=== PATIENT | male | born 1970 | race Caucasian/White ===

== ENCOUNTER 2022-09-25 05:52 | Day surgery (SDC) | payer OTHER ==
[2022-09-25] MEDS ORDERED: Lactated Ringers 1,000 ML IV ONE (06:14)
[2022-09-25] MEDS ORDERED: Lactated Ringers 1,000 ML IV SCH (06:30)
[2022-09-25] MEDS ORDERED: Versed 2 MG/2 ML Injection ONE (07:31)
[2022-09-25] MEDS ORDERED: Xylocaine-Mpf 2% 5 Ml Vial ONE (07:31)
[2022-09-25] MEDS ORDERED: DIPRIVAN 200 MG/20 ML IV ONE ×2 (07:31→07:53)
[2022-09-25 08:37] VITALS: BP 111/69; PULSE 70; O2SAT 96
--- NOTE | 2022-09-25 10:23 | OP ---
SURGERY DATE/TIME: 09/25/2022 1521 PREOPERATIVE DIAGNOSES: 1) Screening colonoscopy. 2) Family history of colon cancer. POSTOPERATIVE DIAGNOSIS: Normal colon. PROCEDURE: Colonoscopy. SURGEON: Erlin Sal M.D. ANESTHESIA: MAC by Jarrett Salgado CRNA. ESTIMATED BLOOD LOSS: None. SPECIMENS: None. DESCRIPTION OF PROCEDURE: After informed written consent was obtained, the patient was taken to the endoscopy suite. Anesthesia was titrated to desired level of consciousness. Digital rectal exam showed normal sphincter tone and no internal lesions. The scope was inserted into the rectum and sequentially the entire colonic mucosa was traversed. The level of cecum was reached and verified with direct visualization of the ileocecal valve. Upon withdrawal careful mucosal inspection revealed no gross abnormalities. Retroflexion was performed prior to withdrawal and was within normal limits. The scope was removed and the patient was transferred to the recovery room in good condition. I recommended a five year follow up due to family history of colon cancer.
== END 2022-09-25 08:40 | disposition home or self-care (01) ==
LOC: SDC 05:52
PROVIDERS: ATTEND Family Medicine
DX: Z12.11 Encounter for screening for malignant neoplasm of colon (principal); Z80.0 Family history of malignant neoplasm of digestive organs
CPT/HCPCS: J2250; J2704